=== PATIENT | male | born 2005 | race Caucasian/White ===

== ENCOUNTER 2023-07-10 15:49 | Emergency (ER) | payer OTHER, SELFPAY ==
[2023-07-10 15:51] VITALS: BP 140/78
--- NOTE | 2023-07-10 19:42 | ED.GENMED ---
History of Present Illness
General
Chief Complaint: Abdominal Symptoms
Source: patient
Exam Limitations: none
Time Seen by Provider: 07/10/23 16:57
Nursing documentation reviewed up to this point in time: agreed with
Travel History
Have you had any contact with someone who has COVID-19?: No
Do you have any symptoms of coronavirus? Fever > 100 degrees, chills, cough, shortness of breath, sore throat, loss of taste or smell, muscle aches, or headache?: No
History of Present Illness
History of Present Illness:
Patient to ED witi complaint of right sided abdominal discomfort. Reports pain is sharp and occurs with movement. Symptoms started today. No prior history of same. Denies fever/chills, n/v/d. No urinary symptoms. No testicular pain or swelling.
Brought self to ED for eval.
Past History
Past History
ED Past Medical History: None
ED Past Surgical History: None
Social History
Tobacco: Smoker
Review of Systems
Review of Systems
Allergies reviewed?: Yes
All Other Systems: ROS reviewed and negative except as documented in HPI and ROS
Constitutional: Reports no symptoms
EENT: Reports no symptoms
Respiratory: Reports no symptoms
Cardiac: Reports no symptoms
ABD/GI: Reports abdominal pain (right abdominal pain with movement)
: Reports no symptoms
Musculoskeletal: Reports muscle pain (right side abdomen)
Skin: Reports no symptoms
Neurological: Reports no symptoms
Psychiatric: Reports no symptoms
Phy Exam
General Physical Exam
General Presentation: well appearing and no apparent distress
General age: appears stated age
General Skin: warm and dry
General Habitus: normal
General Mental: alert
Gastrointestinal Exam
Gastrointestinal Exam: normal bowel sounds, non tender (No tenderness to palpation. Sharp pain with movement.), no organomegaly, no pulsatile mass, non distended and no cva tenderness
Genitourinary Exam Male
Exam Male: circumcised, no discharge, normal external genitalia, normal testicular exam, no evidence of trauma, no lesions, no testicular swelling, no testicular tenderness and other (No evidence of inguinal hernia bilaterally)
Musculoskeletal Exam
Musculoskeletal Exam: full ROM and neuro vasc intact
Skin Exam
Skin Exam: normal color, warm/dry and no rash
Psychiatric Exam
Psychiatric Exam: normal mood/affect
Course
Vital Signs
Initial and Last Documented VS:
Initial Vital Signs
Temp Pulse Resp BP Pulse Ox
99.1 F 99 17 140/78 99
07/10/23 15:51 07/10/23 15:51 07/10/23 15:51 07/10/23 15:51 07/10/23 15:51
Last Documented Vital Signs
Temp Pulse Resp BP Pulse Ox
99.1 F 99 17 140/78 99
07/10/23 15:51 07/10/23 15:51 07/10/23 15:51 07/10/23 15:51 07/10/23 15:51
*Critical Care Note
Total Time (30-74mins, 75-104mins- exclusive of procedures): Not Applicable
Update Note
Update Note:
patient to ED with right sided sharp pain withmovement. Started this afternoon. NO fever/chills, n/v/d. Normal testicular exam. No evidence of inguinal hernia. Pain only with movement suggesting muscular source. Nontoxic appearing, afebrile.
He is discharged home and will follow up with PCP. Recommend ibuprofen prn, ice for comfort. Patient given instructions on s/s to return to ED and he is agreeable to plan.
ED Attending Note
-
Portions of this chart may have been created with voice recognition software.� Occasional wrong word or��sound alike� substitutions may have occurred due to the inherent limitations of voice recognition software.
Discharge Plan
Departure
Patient Disposition: Home (Routine Discharge)
Date of Disposition: 07/10/23
Time of Disposition: 17:04
Patient with high blood pressure during this ER visit?: No
Condition: Good
Covid-19: Not Applicable
Discharge Problem:
Musculoskeletal pain
Instructions: Musculoskeletal Pain
Prescriptions:
No Action
cyclobenzaprine 10 MG tablet
10 mg PO TIDPRN PRN (Reason: spasm) Qty: 12 0RF
ibuprofen 600 MG tablet
600 mg PO Q6HPRN PRN (Reason: pain) Qty: 20 0RF
cyclobenzaprine 10 mg tablet
10 mg PO TID PRN (Reason: muscle spasm) Qty: 10 0RF
Activity Restrictions/Additional Instructions:
Return to the emergency department immediately for any fever/chills, increasing pain, vomiting or for any further concerns.
Interventions
Interventions:
*Risk Screen - Suicide Last Done: 07/10/23 15:52
*General Assessment Last Done: 07/10/23 15:52
*Neglect/Abuse Screening Last Done: 07/10/23 15:52
ED- Fall Risk Assessment Last Done: 07/10/23 17:34
*ED COVID-19 Vaccine History Last Done: 07/10/23 15:52
*Nursing Disposition Last Done: 07/10/23 17:36
XY-Yscgvm-Agrgotjbnj Assessment Last Done: 07/10/23 17:34
Discharge Date and Time
Discharge Date/Time: 07/10/23 17:36
== END 2023-07-10 17:36 | disposition home or self-care (01) ==
LOC: EMR 15:49
PROVIDERS: EMERGENCY PHYSICIAN Emergency Medicine; FAMILY PHYSICIAN Family Medicine
DX: M79.18 Myalgia, other site (principal); F17.200 Nicotine dependence, unspecified, uncomplicated
CPT/HCPCS: 99281